=== PATIENT | female | born 2000 | race Caucasian/White ===

== ENCOUNTER 2023-03-12 17:57 | Emergency (ER) | payer OTHER ==
[2023-03-12 18:06] VITALS: BP 105/56; PULSE 55; RESP 18; TEMP 97.9; BMI 19.5
[2023-03-12 19:10] LABS: BASO % 0.5 % (0-2.0); EOS % 0.1 % (0-4.5); HEMATOCRIT 37.5 % (32.4-45.2); HEMOGLOBIN 12.9 GM/dL (10.7-15.3); LYMPH % 14.9 % (8-40); MCH 31.5 pg (25.7-33.7); MCHC 34.3 g/dl (32.0-36.0); MEAN CELL VOLUME 91.8 fl (80-96); MEAN PLT VOLUME 7.1 fl (7.5-11.1); MONO % 7.6 % (3.8-10.2); NEUT % 76.9 % (42.8-82.8); PH,URINE 5.5 (5.0-8.0); PLATELET COUNT 306 10^3/uL (134-434); RBC 4.08 M/mm3 (3.60-5.2); RDW 11.9 % (11.6-15.6); URINE APPEARANCE CLOUDY; URINE BILIRUBIN NEGATIVE (NEGATIVE); URINE COLOR YELLOW; URINE GLUCOSE (UA) NEGATIVE (NEGATIVE); URINE KETONE TRACE (NEGATIVE); URINE LEUK ESTERASE NEGATIVE (NEGATIVE); URINE NITRITE NEGATIVE (NEGATIVE); URINE PROTEIN TRACE (NEGATIVE); WHITE BLOOD COUNT 8.7 K/mm3 (4.0-10.0)
[2023-03-12 19:49] LABS: POTASSIUM 4.6 mmol/L (3.5-5.1)
[2023-03-12 19:51] LABS: MAGNESIUM 1.8 mg/dL (1.8-2.4)
[2023-03-12 19:52] LABS: ALBUMIN 4.2 g/dl (3.4-5.0); BLOOD UREA NITROGEN 10.2 mg/dL (7-18); CALCIUM 10.1 mg/dL (8.5-10.1)
[2023-03-12 19:54] LABS: CREATININE 0.6 mg/dL (0.55-1.3)
[2023-03-12 19:56] LABS: TOT PROT 7.7 g/dl (6.4-8.2)
[2023-03-12 19:57] LABS: BILIRUBIN,TOTAL 0.2 mg/dL (0.2-1)
== END 2023-03-12 20:11 | disposition home or self-care (01) ==
LOC: JER 17:57
DX: O21.9 Vomiting of pregnancy, unspecified (principal); O26.891 Other specified pregnancy related conditions, first trimester; R42 Dizziness and giddiness; O99.411 Diseases of the circulatory system complicating pregnancy, first trimester; R00.1 Bradycardia, unspecified; Z3A.01 Less than 8 weeks gestation of pregnancy
CPT/HCPCS: 36415; 80053; 81003; 82150; 83690; 83735; 84100; 84703; 85025; 87086; 87186; 93005; 93010; 99284-25

== ENCOUNTER 2023-05-31 13:32 | Emergency (ER) | payer OTHER ==
[2023-05-31 13:45] VITALS: TEMP 98.2; BMI 22.4
[2023-05-31 15:09] LABS: BASO % 0.7 % (0-2.0); EOS % 1.5 % (0-4.5); HEMATOCRIT 32.4 % (32.4-45.2); HEMOGLOBIN 11.2 GM/dL (10.7-15.3); LYMPH % 20.5 % (8-40); MCH 31.8 pg (25.7-33.7); MCHC 34.5 g/dl (32.0-36.0); MEAN CELL VOLUME 92.3 fl (80-96); MEAN PLT VOLUME 6.9 fl (7.5-11.1); MONO % 7.6 % (3.8-10.2); NEUT % 69.7 % (42.8-82.8); PLATELET COUNT 293 10^3/uL (134-434); RBC 3.51 M/mm3 (3.60-5.2); RDW 13.3 % (11.6-15.6); WHITE BLOOD COUNT 6.7 K/mm3 (4.0-10.0)
[2023-05-31] MEDS ORDERED: ACETAMINOPHEN 325 MG TABLET (FP) PO ONE (15:11)
[2023-05-31] MEDS ORDERED: ACETAMINOPHEN 325 MG TABLET (FP) ONE (15:22)
[2023-05-31 15:24] LABS: POTASSIUM 4.5 mmol/L (3.5-5.1)
[2023-05-31 15:26] LABS: CALCIUM 9.1 mg/dL (8.5-10.1)
[2023-05-31 15:27] LABS: ALBUMIN 3.1 g/dl (3.4-5.0)
[2023-05-31 15:30] LABS: BLOOD UREA NITROGEN 5.7 mg/dL (7-18); CREATININE 0.5 mg/dL (0.55-1.3)
[2023-05-31 15:31] LABS: BILIRUBIN,TOTAL 0.4 mg/dL (0.2-1)
[2023-05-31 15:32] LABS: TOT PROT 6.7 g/dl (6.4-8.2)
[2023-05-31 15:41] LABS: HCG,QUALITATIVE URINE Positive
[2023-05-31 15:43] LABS: EPI CELLS >36 /uL (0-25.1); HYALINE CASTS 3 /uL (0-3.1); URINE APPEARANCE CLEAR; URINE BACTERIA 1519 /uL (0-1359); URINE BILIRUBIN NEGATIVE (NEGATIVE); URINE COLOR DK YELLOW; URINE GLUCOSE (UA) NEGATIVE (NEGATIVE); URINE KETONE TRACE (NEGATIVE); URINE LEUK ESTERASE 2+ (NEGATIVE); URINE NITRITE NEGATIVE (NEGATIVE); URINE PROTEIN TRACE (NEGATIVE); URINE RBC 12 /uL (0-23.9); URINE WBC 56 /uL (0-25.8)
[2023-05-31 17:00] VITALS: BP 97/61; PULSE 63; RESP 20
[2023-05-31 18:06] LABS: EPI CELLS 18 /uL (0-25.1); HYALINE CASTS 0 /uL (0-3.1); URINE APPEARANCE CLEAR; URINE BACTERIA 605 /uL (0-1359); URINE BILIRUBIN NEGATIVE (NEGATIVE); URINE COLOR YELLOW; URINE GLUCOSE (UA) NEGATIVE (NEGATIVE); URINE KETONE NEGATIVE (NEGATIVE); URINE LEUK ESTERASE 3+ (NEGATIVE); URINE NITRITE NEGATIVE (NEGATIVE); URINE PROTEIN NEGATIVE (NEGATIVE); URINE RBC 6 /uL (0-23.9); URINE UROBILINOGEN 0.2 mg/dL (0.2-1.0); URINE WBC 9 /uL (0-25.8)
== END 2023-05-31 18:50 | disposition home or self-care (01) ==
LOC: JER 13:32
DX: O26.892 Other specified pregnancy related conditions, second trimester (principal); R10.31 Right lower quadrant pain; O99.612 Diseases of the digestive system complicating pregnancy, second trimester; K59.00 Constipation, unspecified; Z3A.18 18 weeks gestation of pregnancy
CPT/HCPCS: 36415; 76801-TC; 76856-TC; 80053; 81003; 84703; 85025; 87086; 87491; 87591; 99284-25

== ENCOUNTER 2023-11-05 09:55 | Inpatient (IN) | payer OTHER ==
[2023-11-05] MEDS ORDERED: BUTORPHANOL TARTRATE 2 MG/ML VIAL IVPUSH PRN (11:12)
[2023-11-05] MEDS: PROMETHAZINE HCL 25 MG/1 ML VIAL IVPB ONE (11:12)
[2023-11-05 11:31] VITALS: RESP 18
[2023-11-05 11:58] LABS: BASO % 0.5 % (0-2.0); EOS % 0.4 % (0-4.5); HEMATOCRIT 30.5 % (32.4-45.2); HEMOGLOBIN 10.7 GM/dL (10.7-15.3); LYMPH % 14.6 % (8-40); MCH 31.3 pg (25.7-33.7); MCHC 35.2 g/dl (32.0-36.0); MEAN CELL VOLUME 89.1 fl (80-96); MEAN PLT VOLUME 6.9 fl (7.5-11.1); MONO % 6.3 % (3.8-10.2); NEUT % 78.2 % (42.8-82.8); PLATELET COUNT 340 10^3/uL (134-434); RBC 3.42 M/mm3 (3.60-5.2); RDW 12.9 % (11.6-15.6); WHITE BLOOD COUNT 10.9 K/mm3 (4.0-10.0)
[2023-11-05 12:01] LABS: INR 0.89 (0.83-1.09); PROTHROMBIN TIME (PATIENT) 10.1 SEC (9.7-13.0)
[2023-11-05 12:04] LABS: ACTIVATED PTT 27.6 SECONDS (25.2-36.5)
[2023-11-05 12:09] LABS: RETICULOCYTES 1.71 % (0.5-1.5)
[2023-11-05] MEDS: ELECTROLYTE-148 SOLN 1,000 ML IV SCH (12:10)
[2023-11-05 12:12] LABS: POTASSIUM 3.8 mmol/L (3.5-5.1)
[2023-11-05 12:14] LABS: BLOOD UREA NITROGEN 7.9 mg/dL (7-18)
[2023-11-05 12:17] LABS: CREATININE 0.5 mg/dL (0.55-1.3); URIC ACID 5.1 mg/dL (2.6-7.2)
[2023-11-05] MEDS ORDERED: FENTANYL/BUPIVACAINE/NS/PF - PCEA - 50 ML DISP.SYRIN EP ONE ×4 (12:45→21:44)
[2023-11-05] MEDS: FENTANYL/BUPIVACAINE/NS/PF - PCEA - 50 ML DISP.SYRIN EP SCH (13:10)
[2023-11-05] MEDS ORDERED: NALOXONE HCL 0.4 MG/ML VIAL IVPUSH PRN (13:22)
[2023-11-05 13:46] VITALS: BMI 27.7
[2023-11-05] MEDS ORDERED: OXYTOCIN 30 UNITS in 0.9% NS 30 UNIT/500 ML INFUS.BAG IVPB ONE (16:56)
[2023-11-05] MEDS: OXYTOCIN 30 UNITS in 0.9% NS 30 UNIT/500 ML INFUS.BAG IVPB SCH (17:00)
[2023-11-05] MEDS ORDERED: OXYTOCIN 20 UNITS in 0.9% NS 20 UNIT/1,000 ML INFUS.BAG IV ONE (21:29)
[2023-11-05] MEDS: OXYTOCIN 20 UNITS in 0.9% NS 20 UNIT/1,000 ML INFUS.BAG IV SCH (23:02)
[2023-11-05] MEDS ORDERED: WITCH HAZEL 50% (TUCKS) 40 PAD/JAR PAD TP PRN (23:07)
[2023-11-05] MEDS ORDERED: oxyCODONE HCL 5 MG TABLET PO PRN (23:07)
[2023-11-05] MEDS ORDERED: METHYLERGONOVINE MALEATE 0.2 MG/1 ML AMP IM PRN (23:07)
[2023-11-05] MEDS ORDERED: BENZOCAINE 28 GM HEMORRHOIDAL OINTMENT TP PRN (23:07)
[2023-11-05] MEDS ORDERED: BISACODYL 10 MG SUPP.RECT RC PRN (23:07)
[2023-11-06] MEDS: IBUPROFEN 600 MG TABLET (FP) PO PRN (02:24)
[2023-11-06 07:47] LABS: BASO % 0.1 % (0-2.0); EOS % 0.1 % (0-4.5); HEMATOCRIT 28.9 % (32.4-45.2); HEMOGLOBIN 9.7 GM/dL (10.7-15.3); LYMPH % 6.7 % (8-40); MCH 30.4 pg (25.7-33.7); MCHC 33.7 g/dl (32.0-36.0); MEAN CELL VOLUME 90.2 fl (80-96); MEAN PLT VOLUME 7.3 fl (7.5-11.1); MONO % 4.6 % (3.8-10.2); NEUT % 88.5 % (42.8-82.8); PLATELET COUNT 322 10^3/uL (134-434); RDW 12.9 % (11.6-15.6); WHITE BLOOD COUNT 19.6 K/mm3 (4.0-10.0)
[2023-11-06] MEDS: ACETAMINOPHEN 325 MG TABLET (FP) PO PRN (07:56)
[2023-11-06] MEDS: BENZOCAINE 20% 57 GM BOTTLE TP PRN (10:07)
[2023-11-06] MEDS ORDERED: SENNOSIDES/DOCUSATE COMBO (SENNA PLUS) TABLET (UD) PO PRN (22:00)
[2023-11-07 09:36] VITALS: BP 99/63; PULSE 57; TEMP 98.6
== END 2023-11-07 14:35 | disposition home or self-care (01) | DRG 560 ==
LOC: JDEL 09:55 → JLDR 10:14 → J3W 11-06 02:05
PROVIDERS: ADMIT Obstetrics & Gynecology; ATTEND Obstetrics & Gynecology
PROC: 10E0XZZ Delivery of Products of Conception, External Approach (ICD-10-PCS; principal; 2023-11-05)
DX: O48.0 Post-term pregnancy (principal); Z3A.40 40 weeks gestation of pregnancy; Z37.0 Single live birth
CPT/HCPCS: 36415; 59025; 80048; 82977; 83010; 84450; 84460; 84550; 85025; 85045; 85610; 85730; 86780; 86850; 86900; 86901; G0463-25